=== PATIENT | male | born 1990 | race Asian ===

== ENCOUNTER 2024-12-14 07:53 | Emergency (ER) | payer OTHER ==
[~2024-12-14] VITALS: Ht 180.3 cm; Wt 96.6 kg
[2024-12-14] MEDS ORDERED: IV NS 0.9% 250 ML IV ONE (08:13)
[2024-12-14] MEDS ORDERED: CT SWABBABLE VALVE TRANS SET 1 EA INFUS.SET MC ONE (08:13)
[2024-12-14] MEDS ORDERED: IOHEXOL-350 100 ML VIAL IV ONE (08:13)
[2024-12-14 08:23] LABS: BASOPHILS % (AUTO) 0.6 % (0.0-2.0); EOSINOPHILS # (AUTO) 0.2 K/uL (0.0-0.7); EOSINOPHILS % (AUTO) 3.1 % (0.0-6.0); HEMATOCRIT 42 % (39-51); HEMOGLOBIN 13.9 g/dL (13.5-17.5); LYMPHOCYTES # (AUTO) 1.7 K/uL (0.8-4.8); LYMPHOCYTES % (AUTO) 32.3 % (20.0-44.0); MEAN CORPUSCULAR HEMOGLOBIN 30 PG (26.0-33.0); MEAN CORPUSCULAR HGB CONC 33 g/dl (31.0-36.0); MEAN CORPUSCULAR VOLUME 91 fL (80-96); MONOCYTES # (AUTO) 0.4 K/uL (0.1-1.30); MONOCYTES % (AUTO) 6.9 % (2.0-12.0); NEUTROPHILS % (AUTO) 57.1 % (43.0-81.0); PLATELET COUNT (AUTO) 262 K/uL (150-450); RED CELL DISTRIBUTION WIDTH 13.2 % (11.5-15.0); WHITE BLOOD COUNT (AUTO) 5.2 K/uL (4.3-11.0)
[2024-12-14 08:30] LABS: CREATININE 0.8 mg/dL (0.6-1.3)
[2024-12-14 08:32] LABS: POTASSIUM 2.8 mmol/L (3.5-5.1)
[2024-12-14 08:34] LABS: INR 0.96 (0.91-1.10); PARTIAL THROMBOPLASTIN TIME 26.1 SEC (24.3-34.3); PROTHROMBIN TIME 9.9 SECS (9.2-11.1)
[2024-12-14] MEDS ORDERED: ACETAMINOPHEN ES 500 MG TABLET ONE (08:50)
[2024-12-14] MEDS: ACETAMINOPHEN ES 500 MG TABLET PO ONE (08:55)
[2024-12-14] MEDS ORDERED: POTASSIUM CHLORIDE 20 MEQ TAB.PRT.SR PO ONE (09:02)
[2024-12-14] MEDS: POTASSIUM CHLORIDE 20 MEQ TAB.PRT.SR PO ONE (09:02)
[2024-12-14 09:34] VITALS: BP 125/86; TEMP 98.4; O2SAT 97
== END 2024-12-14 09:35 | disposition home or self-care (01) ==
LOC: ER 08:03
DX: S20.219A Contusion of unspecified front wall of thorax, initial encounter (principal); E87.6 Hypokalemia; V49.9XXA Car occupant (driver) (passenger) injured in unspecified traffic accident, initial encounter; Y93.89 Activity, other specified; Y92.415 Exit ramp or entrance ramp of street or highway as the place of occurrence of the external cause; Y99.8 Other external cause status
CPT/HCPCS: 99285; 71260; 71045; 93005; 74177; 85025; 80048; 36415; 85730; J7050; Q9967

== ENCOUNTER 2024-12-23 10:29 | Emergency (ER) | payer OTHER ==
[~2024-12-23] VITALS: Ht 180.3 cm; Wt 104.3 kg
[2024-12-23 10:34] VITALS: BP 123/75; TEMP 97.9; O2SAT 99
[2024-12-23] MEDS ORDERED: IBUPROFEN 400 MG TABLET ONE (11:10)
[2024-12-23] MEDS: IBUPROFEN 400 MG TABLET PO ONE (11:18)
== END 2024-12-23 11:28 | disposition home or self-care (01) ==
LOC: ER 10:37
DX: R07.89 Other chest pain (principal); M54.6 Pain in thoracic spine; V43.52XA Car driver injured in collision with other type car in traffic accident, initial encounter; Y93.89 Activity, other specified; Y92.488 Other paved roadways as the place of occurrence of the external cause; Y99.8 Other external cause status
CPT/HCPCS: 71045-TC